=== PATIENT | female | born 1980 ===

== ENCOUNTER 2021-10-27 18:37 | Emergency (ER) | payer BC ==
[2021-10-27] MEDS ORDERED: Sodium Chloride 0.9% 10 ML Syringe FLUSH PRN (19:16)
[2021-10-27] MEDS ORDERED: Ondansetron 4 MG/2 ML SDV IVPUSH ONE (19:24)
[2021-10-27] MEDS ORDERED: Sodium Chloride 0.9% 1,000 ML IV ONE (19:24)
[2021-10-27] MEDS ORDERED: HYDROmorphone 0.5 MG/0.5 ML Syringe IVPUSH ONE (19:24)
[2021-10-27] MEDS ORDERED: Sodium Chloride 0.9% 10 ML Syringe FLUSH ONE (20:19)
[2021-10-27] MEDS ORDERED: Iopamidol 612 MG/ML 100 ML Bottle IVPUSH ONE (20:19)
[2021-10-27] MEDS ORDERED: Potassium Chloride 20 MEQ Tab.ER PO ONE (21:04)
[2021-10-27] MEDS: Potassium Chloride 10 MEQ in Premix Bag 1 BAG IV SCH ×3 (21:24→23:56)
[2021-10-27] MEDS ORDERED: Sodium Chloride 0.9% 1,000 ML IV SCH (21:30)
[2021-10-27] MEDS ORDERED: Magnesium Citrate Solution 296 ML Bottle PO ONE (22:02)
[2021-10-27] MEDS ORDERED: Dicyclomine 10 MG Cap PO ONE (22:02)
[2021-10-28] MEDS: Potassium Chloride 10 MEQ in Premix Bag 1 BAG IV SCH (01:23)
== END 2021-10-28 03:46 | disposition home or self-care (01) ==
LOC: JD.ED 18:37
DX: R10.11 Right upper quadrant pain (principal); E87.6 Hypokalemia
CPT/HCPCS: 36415; 74177; 80053; 82977; 83690; 83735; 85025; 86140; 96361; 96365; 96366; 96375; 99284; A9270; J1170; J2405; J3480; J3490; J7030; Q9967